=== PATIENT | female | born 1950 | race African-American/Black ===

== ENCOUNTER 2016-07-24 12:54 | Outpatient (CLI) | payer OTHER, BC ==
[2016-07-24 13:34] LABS: BILIRUBIN,URINE NEGATIVE (NEGATIVE); BLOOD, URINE NEGATIVE (NEGATIVE); CLARITY/URINE CLEAR (CLEAR); COLOR,URINE YELLOW (YELLOW); GLUCOSE,URINE NEGATIVE (NEGATIVE); KETONES,URINE NEGATIVE (NEGATIVE); LEUKOCYTE ESTERASE ,URINE NEGATIVE (NEGATIVE); NITRITE, URINE NEGATIVE (NEGATIVE); PROTEIN URINE NEGATIVE (NEGATIVE); UROBILINOGEN,URINE 0.2 (0.2-1.0)
[2016-07-24 13:40] LABS: CREATININE 0.84 mg/dL (0.55-1.30)
== END 2016-07-24 19:39 | disposition home or self-care (01) ==
LOC: SLB 12:54
PROVIDERS: ATTEND Orthopaedic Surgery
DX: Z00.00 Encounter for general adult medical examination without abnormal findings (principal); Z79.1 Long term (current) use of non-steroidal anti-inflammatories (NSAID)
CPT/HCPCS: 36415; 81003; 82565-TC; 83051; 84450-TC; 84460-TC